=== PATIENT | male | born 1960 | race Caucasian/White ===

== ENCOUNTER 2020-08-05 13:58 | Observation (INO) ==
[2020-08-05] MEDS ORDERED: 0.9 % Sodium Chloride 1,000 ML IVC ONE ×2 (14:15→19:53)
[2020-08-05] MEDS ORDERED: Ondansetron 4 MG/2 ML VIAL IVP ONE (14:17)
[2020-08-05 14:37] LABS: Basophils % 0.3 %; Eosinophils % 0.1 %; Hematocrit 46.8 % (37.5-50.1); Immature Granulocytes % 0.6 % (0-4); Lymphocytes # 0.5 K/mcL (0.6-4.6); Lymphocytes % 3.2 %; Mean Corpuscular HGB Conc 32.1 g/dL (31.6-35.5); Mean Corpuscular Hemoglobin 29.3 pg (28.0-33.3); Mean Corpuscular Volume 91.4 fL (83.0-100.0); Mean Platelet Volume 9.5 fL (9.4-12.4); Monocytes # 0.5 K/mcL (0.0-1.3); Monocytes % 3.1 %; Neutrophils # 14.6 K/mcL (1.6-8.9); Platelet Count 277 K/mcL (140-400); Red Blood Count 5.12 M/mcL (4.19-5.50); Red Cell Distribution Width 11.9 % (11.5-14.5); Segmented Neutrophils % 92.7 %; White Blood Count 15.7 K/mcL (4.3-11.1)
[2020-08-05] MEDS: Nitroglycerin 0.4 MG TAB.SUBL SL SCH ×3 (14:42→14:56)
[2020-08-05 14:56] LABS: Alanine Aminotransferase 127 Units/L (7-52); Albumin 4.5 g/dL (3.5-5.7); Albumin/Globulin Ratio 1.6 (1.1-2.2); Alkaline Phosphatase 103 Units/L (34-104); Aspartate Amino Transferase 131 Units/L (13-39); BUN/Creatinine Ratio 16 (6-26); Bilirubin,Indirect 0.7 mg/dL (0.0-1.0); Bilirubin,Total 1.7 mg/dL (0.3-1.0); Blood Urea Nitrogen 12 mg/dL (8-23); Calcium 9.6 mg/dL (8.6-10.3); Carbon Dioxide 28 mEq/L (23-29); Chloride 99 mEq/L (98-107); Globulin 2.9 g/dL (2.4-3.5); Glucose 164 mg/dL (70-105); Lipase 13 Units/L (11-82); Osmolality,Calculated 283 (280-300); Potassium 3.9 mEq/L (3.5-5.1); Sodium 135 mEq/L (136-145); Total Protein 7.4 g/dL (6.4-8.9); Troponin I < 0.03 ng/mL (< 0.04); eGFR For African Americans > 60 (> 60); eGFR For Non-African Americans > 60 (> 60)
[2020-08-05] MEDS ORDERED: Isovue-370 500 ML BOTTLE IVP ONE (15:28)
[2020-08-05 17:12] LABS: Adenovirus Not Detected (Not Detect); Bordetella Pertussis Not Detected (Not Detect); Chlamydophila pneumoniae Not Detected (Not Detect); Coronavirus 229E Not Detected (Not Detect); Coronavirus HKU1 Not Detected (Not Detect); Coronavirus NL63 Not Detected (Not Detect); Coronavirus OC43 Not Detected (Not Detect); Human Metapneumovirus Not Detected (Not Detect); Human Rhinovirus/Enterovirus Not Detected (Not Detect); Influenza A Subtype 2009 H1 Not Detected (Not Detect); Influenza B Not Detected (Not Detect); Mycoplasma pneumoniae Not Detected (Not Detect); Parainfluenza Virus 1 Not Detected (Not Detect); Parainfluenza Virus 2 Not Detected (Not Detect); Parainfluenza Virus 3 Not Detected (Not Detect); Parainfluenza Virus 4 Not Detected (Not Detect); Respiratory Syncytial Virus Not Detected (Not Detect); SARS-CoV-2 Not Detected (Not Detect)
[2020-08-05] MEDS ORDERED: Piperacillin/Tazobactam 3.375 GM in 0.9 % Sodium Chloride Mini Bag 100 ML IVPB STA (18:55)
[2020-08-05] MEDS ORDERED: Naloxone 0.4 MG/ML INJ IVP PRN (21:12)
[2020-08-05] MEDS ORDERED: *HR* Promethazine 25 MG/ML VIAL IVP PRN (21:12)
[2020-08-05] MEDS ORDERED: Acetaminophen 325 MG TABLET PO PRN (21:12)
[2020-08-05] MEDS: *HR* HYDROmorphone (PF) 1 MG/ML SYRINGE IVP PRN (22:00)
[2020-08-05] MEDS: Piperacillin/Tazobactam 3.375 GM in 0.9 % Sodium Chloride Mini Bag 100 ML IVPB SCH (23:33)
[2020-08-05] MEDS: 0.9 % Sodium Chloride 1,000 ML IVC SCH (23:33)
[2020-08-06 02:20] LABS: Basophils # 0.1 K/mcL (0.0-0.2); Basophils % 0.3 %; Eosinophils % 0.1 %; Hematocrit 39.3 % (37.5-50.1); Immature Granulocytes % 0.4 % (0-4); Lymphocytes % 5.8 %; Mean Corpuscular HGB Conc 32.8 g/dL (31.6-35.5); Mean Corpuscular Hemoglobin 30.4 pg (28.0-33.3); Mean Corpuscular Volume 92.7 fL (83.0-100.0); Mean Platelet Volume 9.7 fL (9.4-12.4); Monocytes # 1.5 K/mcL (0.0-1.3); Monocytes % 8.1 %; Neutrophils # 15.2 K/mcL (1.6-8.9); Platelet Count 248 K/mcL (140-400); Red Blood Count 4.24 M/mcL (4.19-5.50); Red Cell Distribution Width 12.4 % (11.5-14.5); Segmented Neutrophils % 85.3 %; White Blood Count 17.8 K/mcL (4.3-11.1)
[2020-08-06 02:21] LABS: INR 1.2; Prothrombin Time 13.6 Seconds (9.4-12.1)
[2020-08-06 02:24] LABS: Hemoglobin 12.9 g/dL (12.9-16.9)
[2020-08-06 02:44] LABS: Alanine Aminotransferase 102 Units/L (7-52); Albumin 3.9 g/dL (3.5-5.7); Albumin/Globulin Ratio 1.7 (1.1-2.2); Alkaline Phosphatase 74 Units/L (34-104); Aspartate Amino Transferase 74 Units/L (13-39); BUN/Creatinine Ratio 13 (6-26); Bilirubin,Total 1.1 mg/dL (0.3-1.0); Blood Urea Nitrogen 10 mg/dL (8-23); Calcium 8.7 mg/dL (8.6-10.3); Carbon Dioxide 26 mEq/L (23-29); Chloride 104 mEq/L (98-107); Chol/HDL Ratio 4.1 (0-4.9); Cholesterol 162 mg/dL (< 200); Globulin 2.3 g/dL (2.4-3.5); Glucose 127 mg/dL (70-105); HDL Cholesterol 40 mg/dL (40-59); LDL Cholesterol,Calculated 91 mg/dL (< 100); Magnesium 1.8 mg/dL (1.6-2.6); Osmolality,Calculated 283 (280-300); Phosphorous 3.4 mg/dL (2.7-4.5); Potassium 3.9 mEq/L (3.5-5.1); Sodium 136 mEq/L (136-145); Total Protein 6.2 g/dL (6.4-8.9); Triglycerides 155 mg/dL (< 150); eGFR For African Americans > 60 (> 60); eGFR For Non-African Americans > 60 (> 60)
[2020-08-06] MEDS: *HR* HYDROmorphone (PF) 1 MG/ML SYRINGE IVP PRN (04:00)
[2020-08-06] MEDS ORDERED: *HR* HYDROmorphone 2 MG TABLET PO PRN (08:15)
[2020-08-06] MEDS ORDERED: *HR* HYDROmorphone (PF) 1 MG/ML SYRINGE IVP PRN (08:15)
[2020-08-06] MEDS ORDERED: *HR* OxyCODONE Immed Rel 5 MG TABLET PO PRN (08:15)
[2020-08-06] MEDS ORDERED: *HR* Labetalol 20 MG/4 ML SYRINGE IVP PRN (08:15)
[2020-08-06] MEDS: Piperacillin/Tazobactam 3.375 GM in 0.9 % Sodium Chloride Mini Bag 100 ML IVPB SCH ×2 (08:16→16:41)
[2020-08-06 08:56] LABS: Enterococcus by PCR Not Detected (Not Detect); blaKPC Carbapenem-Resist Gene Not Detected (Not Detect)
[2020-08-06 08:57] LABS: Acinetobacter baumannii by PCR Not Detected (Not Detect); Candida albicans by PCR Not Detected (Not Detect); Candida glabrata by PCR Not Detected (Not Detect); Candida krusei by PCR Not Detected (Not Detect); Candida parapsilosis by PCR Not Detected (Not Detect); Candida tropicalis by PCR Not Detected (Not Detect); Enterobacter cloacae Cmplx PCR Not Detected (Not Detect); Escherichia coli by PCR DETECTED (Not Detect); Klebsiella oxytoca by PCR Not Detected (Not Detect); Klebsiella pneumoniae by PCR Not Detected (Not Detect); Proteus by PCR Not Detected (Not Detect); Pseudomonas aeruginosa by PCR Not Detected (Not Detect); Serratia marcescens by PCR Not Detected (Not Detect); Staphylococcus aureus by PCR Not Detected (Not Detect); Staphylococcus by PCR Not Detected (Not Detect); Streptococcus agalactiae(B)PCR Not Detected (Not Detect); Streptococcus by PCR Not Detected (Not Detect); Streptococcus pneumoniae PCR Not Detected (Not Detect); Streptococcus pyogenes (A) PCR Not Detected (Not Detect)
[2020-08-06] MEDS ORDERED: lisinopriL 20 MG TABLET PO SCH ×2 (09:00→11:33)
[2020-08-06] MEDS ORDERED: Multivit/Ca/Min/Fe/FA 1 TAB TABLET PO SCH (09:00)
[2020-08-06] MEDS: 0.9 % Sodium Chloride 1,000 ML IVC SCH (09:06)
[2020-08-06] MEDS ORDERED: *HR* Midazolam HCl 2 MG/2 ML VIAL ONE ×2 (09:25→10:41)
[2020-08-06] MEDS ORDERED: *HR* Propofol 200 MG/20 ML VIAL IVP ONE (09:25)
[2020-08-06] MEDS ORDERED: *HR* FentaNYL (PF) 100 MCG/2 ML VIAL ONE (09:25)
[2020-08-06] MEDS ORDERED: *HR* Rocuronium Bromide 50 MG/5 ML VIAL ONE (09:28)
[2020-08-06] MEDS ORDERED: *HR* Succinylcholine 200 MG/10 ML VIAL IVP ONE (09:28)
[2020-08-06] MEDS ORDERED: Dexamethasone 4 MG/ML VIAL ONE (09:29)
[2020-08-06] MEDS ORDERED: Ondansetron 4 MG/2 ML VIAL ONE (09:29)
[2020-08-06] MEDS: *HR* Promethazine 25 MG/ML VIAL IVP PRN ×2 (10:20→12:36)
[2020-08-06] MEDS ORDERED: Isovue-300 50ML VIAL ONE (11:11)
[2020-08-06] MEDS ORDERED: Ketorolac 30 MG/ML VIAL ONE (11:30)
[2020-08-06] MEDS ORDERED: *HR* PHENYLEPHRINE 1,000 MCG/10 ML SYRINGE IVP ONE (11:38)
[2020-08-06] MEDS ORDERED: Ringers Solution, Lactated 1,000 ML ONE (12:48)
[2020-08-06] MEDS: Diclofenac Sodium [Voltaren] 1 APPL TP SCH ×3 (13:55→19:35)
[2020-08-06] MEDS: *HR* OxyCODONE/APAP 5/325 TABLET PO PRN ×2 (14:47→21:09)
[2020-08-06] MEDS: Ketorolac 15 MG/ML VIAL IVP SCH (18:43)
[2020-08-07] MEDS: Piperacillin/Tazobactam 3.375 GM in 0.9 % Sodium Chloride Mini Bag 100 ML IVPB SCH ×2 (00:10→09:01)
[2020-08-07] MEDS: Ketorolac 15 MG/ML VIAL IVP SCH ×2 (00:10→06:40)
[2020-08-07] MEDS: *HR* OxyCODONE/APAP 5/325 TABLET PO PRN ×2 (04:11→10:51)
[2020-08-07 05:03] LABS: Basophils % 0.1 %; Hematocrit 38.7 % (37.5-50.1); Hemoglobin 12.2 g/dL (12.9-16.9); Immature Granulocytes % 0.7 % (0-4); Lymphocytes # 1.2 K/mcL (0.6-4.6); Lymphocytes % 8.2 %; Mean Corpuscular HGB Conc 31.5 g/dL (31.6-35.5); Mean Corpuscular Hemoglobin 29.6 pg (28.0-33.3); Mean Corpuscular Volume 93.9 fL (83.0-100.0); Mean Platelet Volume 9.9 fL (9.4-12.4); Monocytes # 1.1 K/mcL (0.0-1.3); Monocytes % 7.6 %; Neutrophils # 12.3 K/mcL (1.6-8.9); Platelet Count 233 K/mcL (140-400); Red Blood Count 4.12 M/mcL (4.19-5.50); Red Cell Distribution Width 12.3 % (11.5-14.5); Segmented Neutrophils % 83.4 %; White Blood Count 14.7 K/mcL (4.3-11.1)
[2020-08-07 05:22] LABS: Alanine Aminotransferase 143 Units/L (7-52); Albumin 3.7 g/dL (3.5-5.7); Albumin/Globulin Ratio 1.5 (1.1-2.2); Alkaline Phosphatase 75 Units/L (34-104); Aspartate Amino Transferase 108 Units/L (13-39); BUN/Creatinine Ratio 20 (6-26); Bilirubin,Total 0.7 mg/dL (0.3-1.0); Blood Urea Nitrogen 17 mg/dL (8-23); Calcium 8.7 mg/dL (8.6-10.3); Carbon Dioxide 27 mEq/L (23-29); Chloride 103 mEq/L (98-107); Globulin 2.5 g/dL (2.4-3.5); Glucose 188 mg/dL (70-105); Magnesium 2.1 mg/dL (1.6-2.6); Osmolality,Calculated 289 (280-300); Sodium 136 mEq/L (136-145); Total Protein 6.2 g/dL (6.4-8.9); eGFR For African Americans > 60 (> 60); eGFR For Non-African Americans > 60 (> 60)
[2020-08-07 08:08] VITALS: BP 156/85
[2020-08-07] MEDS ORDERED: Aspirin Enteric Coated 325 MG Tablet PO SCH (09:00)
[2020-08-07] MEDS ORDERED: lisinopriL 20 MG TABLET PO SCH (09:00)
[2020-08-07] MEDS ORDERED: Multivit/Ca/Min/Fe/FA 1 TAB TABLET PO SCH (09:00)
[2020-08-07] MEDS: Diclofenac Sodium [Voltaren] 1 APPL TP SCH (09:09)
== END 2020-08-07 11:55 | disposition home or self-care (01) ==
LOC: 3BNU 13:58 → EMEROOARM 13:58 → SUATTDRO 20:16 → 3BNU 21:05
PROVIDERS: ADMIT Student in an Organized Health Care Education/Training Program; ATTEND Internal Medicine